=== PATIENT | female | born 1985 | race Caucasian/White ===

== ENCOUNTER 2016-11-02 09:21 | Day surgery (SDC) | payer BC, OTHER ==
[2016-11-02] MEDS ORDERED: EPINEPHrine 30 MG/30 ML MDV ONE (10:15)
[2016-11-02] MEDS ORDERED: BUPIVACAINE/EPI 0.25% 30 ML SDV ONE (10:15)
[2016-11-02] MEDS ORDERED: ACETAMINOPHEN 500 MG TAB ONE (10:21)
[2016-11-02] MEDS ORDERED: PREGABALIN 50 MG CAP ONE (10:22)
[2016-11-02] MEDS ORDERED: CEFAZOLIN 2 GM/DEXTROSE/100 ML BAG IV ONE (10:23)
[2016-11-02] MEDS ORDERED: fentaNYL 250 MCG/5 ML INJ ONE (10:50)
[2016-11-02] MEDS ORDERED: PROPOFOL 200 MG/20 ML VIAL ONE (10:50)
[2016-11-02] MEDS ORDERED: LIDOCAINE 2% 5 ML SDV ONE (10:51)
[2016-11-02] MEDS ORDERED: ROCURONIUM 50 MG/5 ML VIAL ONE ×2 (10:52→12:45)
[2016-11-02] MEDS ORDERED: SCOPOLAMINE HYDROBROMIDE 1.5 MG PATCH TD ONE (10:56)
[2016-11-02] MEDS ORDERED: MIDAZOLAM 2 MG/2 ML VIAL ONE ×2 (11:19→17:16)
[2016-11-02] MEDS ORDERED: DEXAMETHASONE 4 MG/ML VIAL ONE ×3 (12:20→12:22)
[2016-11-02] MEDS ORDERED: PHENYLEPHRINE HCL 100 MCG/ML SYR ONE (12:22)
[2016-11-02] MEDS ORDERED: epHEDrine SULFATE 10 MG/ML SYR ONE (12:23)
[2016-11-02] MEDS ORDERED: HYDROmorphONE/DILAUDID 2 MG/ML SYR ONE (15:32)
[2016-11-02] MEDS ORDERED: ONDANSETRON 4 MG/2 ML VIAL ONE ×2 (15:56→18:13)
[2016-11-02] MEDS ORDERED: LABETALOL HCL 5 MG/ML 20 ML MDV ONE (16:17)
[2016-11-02] MEDS ORDERED: fentaNYL 100 MCG/2 ML INJ ONE (16:26)
[2016-11-02] MEDS ORDERED: HYDROmorphONE/DILAUDID 1 MG/ML SYR ONE (16:43)
[2016-11-02] MEDS ORDERED: hydrALAZINE 20 MG/ML VIAL ONE (17:16)
[2016-11-02] MEDS ORDERED: hydrALAZINE 20 MG/ML VIAL IVP PRN (17:20)
[2016-11-02] MEDS ORDERED: MIDAZOLAM 2 MG/2 ML VIAL IVP PRN (17:20)
--- NOTE | 2016-11-02 17:49 | DX ---
Intraoperative fluoroscopy History: Left hip arthroscopy. Comparison: None available. Findings: 3 intraoperative spot films show needles and surgical instruments overlying the left hip. Fluoro time: 24.1 seconds. Dose: 9.6 mGy. Impression: Intraoperative fluoroscopy as above.
[2016-11-02] MEDS ORDERED: OXYCODONE/APAP 5/325 TAB ONE (18:13)
[2016-11-02] MEDS ORDERED: ONDANSETRON 4 MG/2 ML VIAL IVP PRN (18:15)
[2016-11-02 18:45] VITALS: BP 149/82; PULSE 74; RESP 16; TEMP 97.9; O2SAT 94
== END 2016-11-02 19:50 | disposition home or self-care (01) ==
LOC: FSGY 09:21
PROVIDERS: ATTEND Orthopaedic Surgery Sports Medicine
PROC: 0SQB4ZZ Repair Left Hip Joint, Percutaneous Endoscopic Approach (ICD-10-PCS; principal; 2016-11-02 11:00)
DX: M25.852 Other specified joint disorders, left hip (principal); Q65.89 Other specified congenital deformities of hip
CPT/HCPCS: 29914; 76001; C1769; C1713; J0360; J0690; J1100; J1170; J2250; J2370; J2405; J2704; J3010; J3490

== ENCOUNTER 2016-11-08 05:50 | Inpatient (IN) | payer BC, OTHER ==
[~2016-11-08 05:50] MED LIST: ACETAMINOPHEN 500 MG TAB PO ONE; PREGABALIN 50 MG CAP PO ONE; ceFAZolin 2 GM/DEXTROSE 100 ML IV ONE
[2016-11-08] MEDS ORDERED: TRANEXAMIC ACID 1,000 MG in NS 100 ML IV ONE ×2 (06:00→09:00)
[2016-11-08] MEDS ORDERED: ACETAMINOPHEN 500 MG TAB PO ONE (06:00)
[2016-11-08] MEDS ORDERED: ceFAZolin 2 GM/DEXTROSE 100 ML IV ONE (06:00)
[2016-11-08] MEDS ORDERED: PREGABALIN 50 MG CAP PO ONE (06:00)
[2016-11-08] MEDS ORDERED: SCOPOLAMINE HYDROBROMIDE 1.5 MG PATCH TD ONE (06:46)
[2016-11-08] MEDS ORDERED: SKIN ADHESIVE (DERMABOND) 1 EACH TP ONE (07:11)
[2016-11-08] MEDS ORDERED: CITRATE DEXTROSE SOLN 500 ML BAG ONE (07:11)
[2016-11-08] MEDS ORDERED: MIDAZOLAM 2 MG/2 ML VIAL ONE (07:11)
[2016-11-08] MEDS ORDERED: DEXAMETHASONE 4 MG/ML VIAL ONE ×2 (07:18→07:21)
[2016-11-08] MEDS ORDERED: LIDOCAINE 2% 100 MG/5 ML SYR IVP ONE (07:18)
[2016-11-08] MEDS ORDERED: ONDANSETRON 4 MG/2 ML VIAL ONE (07:18)
[2016-11-08] MEDS ORDERED: ROCURONIUM 50 MG/5 ML VIAL ONE (07:18)
[2016-11-08] MEDS ORDERED: PROPOFOL 200 MG/20 ML VIAL ONE (07:18)
[2016-11-08] MEDS ORDERED: fentaNYL 100 MCG/2 ML INJ ONE ×2 (07:18→13:02)
[2016-11-08] MEDS ORDERED: SUGAMMADEX SODIUM 200 MG/2 ML VIAL IVP ONE (07:18)
[2016-11-08] MEDS ORDERED: HYDROmorphONE/DILAUDID 2 MG/ML SYR ONE (07:18)
[2016-11-08] MEDS ORDERED: PHENYLEPHRINE HCL 100 MCG/ML SYR ONE (08:10)
[2016-11-08] MEDS ORDERED: NALOXONE HCL 0.4 MG/ML INJ IVP PRN (08:56)
[2016-11-08] MEDS ORDERED: NARCOTIC DRIP BAG-TOTAL ALL TYPES EP PRN (08:56)
[2016-11-08] MEDS ORDERED: LIDOCAINE 2% 5 ML SDV ONE ×3 (11:43→11:55)
[2016-11-08] MEDS ORDERED: LACTULOSE 20 GM/30 ML UDCUP PO PRN (12:52)
[2016-11-08] MEDS ORDERED: ACETAMINOPHEN 325 MG TAB PO PRN (12:52)
[2016-11-08] MEDS ORDERED: MAGNESIUM HYDROXIDE 30 ML UDCUP PO PRN (12:52)
[2016-11-08] MEDS ORDERED: BISACODYL 10 MG SUPP PR PRN (12:52)
[2016-11-08] MEDS ORDERED: ONDANSETRON 4 MG/2 ML VIAL IVP PRN (12:52)
[2016-11-08] MEDS ORDERED: ONDANSETRON DISINTEGRATING 4 MG TAB PO PRN (12:52)
[2016-11-08] MEDS ORDERED: PROMETHAZINE HCL 25 MG/ML INJ ONE (13:08)
--- NOTE | 2016-11-08 13:23 | SUROPNOTE ---
STEPHEN Operative Report - Surgery Surgery was performed at [facility] 11/08/16 Diagnosis: Left 1. Hip Acetabular Dysplasia Operation: Left Jaqui Acetabular Osteotomy (AMINA) Surgeon: Will Etienne MD Vp Clinical: Zeke KENDALL Anesthetic: General + epidural Procedure: General anesthetic. Antibiotics given. Cell saver in use. Fluoroscopy. Phase 1: Position lateral, diagonal skin incision between ischial tuberosity and greater trochanter as for posterior hip approach. Blunt split of glut max fibers. Identification of fat pad overlying sciatic nerve. Exposure of sciatic nerve under fat pad, gently retracting it away-medially to ischial tuberosity. Exposure of subcotoloid fossa proximal to short rotators. Using osteotomes and under fluoroscopy, osteotomy of subcotoloid fossa to sciatic notch proximal to ischial spine. Closure of lateral cut. Patient is turned supine. Phase 2: Skin incision just distal to ASIS. Using diathermy the iliac spine was exposed and inguinal ligament + Sartorious were retracted medially, taking the LFCN with them, protecting it. Inner ilium was dissected from iliacus muscle bluntly , with a cob and swab. Dissection continued towards lateral superior ramus pubis. Using fluoroscopy an osteotomy of lateral superior ramus, just medial to tear drop, was performed with curved fish mouth osteotome. Phase 3: Osteotomy lines of the ilium were marked with diathermy as pre planned according to XR/CT and expected correction of acatabulum. 2 Shanz screws were drilled into central acetabular fragment, corresponding with planned correction angles, in order to mobilize central acetabular fragment after osteotomy is complete. Iliac osteotomy was performed with reciprocating saw and the main acetabular fragment was moved to realign weight bearing position. After confirmation of correction using fluoroscopy in AP and false profile planes, the fragment was fixed with 3 - 5.5mm full threaded screws Inguinal ligament and Sartorious were attached back to ASIS through drill holes. Incision was closed according to soft tissue layers. Skin was closed with subdermal Monocryl. Final fluoro shots were obtained to confirm position/correction. After surgery Nivia moved both lower limbs and had no NV motor compromise. Evaluation under anesthesia: IR at 90 degrees hip flexion prior to AMINA was 25 degrees and after AMINA was 15 degrees. Bleedin cc into cell-saver, 135 of blood products were returned to patient. Post op instructions: 1. Non weight bearing crutches for 6 weeks 2. Epidural analgesia for 24-48 hours 3. Continuous SCD 4. Aspirin 81 mg X1 day once Epidural is discontinued 5. Avoid hip flexion past 90 and hip External rotation. 6. PT according to my recommendations at follow up visit Kind regards, Dr. Will Etienne .
[2016-11-08] MEDS: DC NARCS MISC SCH (14:17)
[2016-11-08] MEDS: REGARDING ANTICOAG MISC SCH (14:17)
--- NOTE | 2016-11-08 14:47 | DX ---
Fluoroscopy provided for left hip surgery 1035 hours Indication: Left periacetabular osteotomy Fluoroscopy time: 58.4 seconds. Dose: 26.94 mGy Technique: Four procedural spot films were obtained . Findings: Imaging reveals periacetabular osteotomy and transfixation of the acetabular component with 3 cannulated screws. Impression: Intraoperative localization provided for left periacetabular osteotomy.
[2016-11-08] MEDS: SENNOSIDES/DOCUSATE SODIUM TAB PO SCH (21:02)
[2016-11-08] MEDS: HYDROmorph 10MCG/ML&BUP 0.1% in 100ML NS EP SCH (22:31)
[2016-11-09 05:29] LABS: HEMATOCRIT 34.9 % (38.0-47.0); HEMOGLOBIN 11.6 g/dL (12.6-16.3); MEAN CELL HEMOGLOBIN CONCENTR. 33.2 g/dL (32.4-36.7); MEAN CELL VOLUME 90.2 fL (81.5-99.8); RED BLOOD CELL COUNT 3.87 10^6/uL (4.18-5.33); RED CELL DISTRIBUTION WIDTH 12.8 % (11.5-15.2)
[2016-11-09 05:56] LABS: ANION GAP 6 mEq/L (8-16); CARBON DIOXIDE 25 mEq/l (22-31); CHLORIDE 107 mEq/L (97-110); CREATININE 0.7 mg/dL (0.6-1.0); GLOMERULAR FILTRATION RATE > 60; GLUCOSE 107 mg/dL (70-100); POTASSIUM 4.6 mEq/L (3.5-5.2); SODIUM 138 mEq/L (134-144)
[2016-11-09] MEDS: SENNOSIDES/DOCUSATE SODIUM TAB PO SCH ×2 (08:01→20:17)
[2016-11-09] MEDS: POLYETHYLENE GLYCOL 3350 17 GM PKT PO PRN (08:13)
[2016-11-09] MEDS: HYDROmorph 10MCG/ML&BUP 0.1% in 100ML NS EP SCH (11:42)
[2016-11-09] MEDS: REGARDING ANTICOAG MISC SCH (12:04)
[2016-11-09] MEDS: DC NARCS MISC SCH (12:04)
--- NOTE | 2016-11-09 13:13 | SOAPPROG ---
SOAP Progress Note Assessment/Plan: Assessment:31 yo F POD 1 s/p AMINA pain well controlled with PCEA. Plan:Continue PCEA at 7cc/hr, 5cc bolus as needed for pain every 15 min 11/09/16 13:10 Subjective: Pain well controlled. Numbness more prominent on R side. No concerns. Objective: Awake, alert. Appears comfortable. Sensation and motor decreased on R>L LE. Epidural cath site clean, dry, intact. Vital Signs Temp Pulse Resp BP Pulse Ox 37.1 C 80 16 116/67 97 11/09/16 12:40 11/09/16 12:40 11/09/16 12:40 11/09/16 12:40 11/09/16 12:40 Laboratory Results 11/09/16 04:25 11/09/16 04:30 11/08/16 11/09/16 11/10/16 05:59 05:59 05:59 Intake Total 2370 200 Output Total 2300 Balance 70 200 - Time Spent With Patient Time Spent With Patient: 10 min ICD10 Worksheet Patient Problems: Problems Problem Status Diagnosed Hip dysplasia, congenital Acute - ICD10 Problem Qualifiers (1) Hip dysplasia, congenital
--- NOTE | 2016-11-09 21:58 | SOAPPROG ---
DEB Progress Note Assessment/Plan: Assessment: Plan: 11/09/16 21:57 Saw Nivia bob, she is doing well, pain is managed well, with some mre numbness on contra lateral side which had mostly resolved. NV intact. She got up today. No headaches or weakness for now. She feels good with no complaints. Hb- 11.6 Dr Etienne Objective: Vital Signs Temp Pulse Resp BP Pulse Ox 37.3 C 90 18 110/66 99 11/09/16 20:00 11/09/16 20:00 11/09/16 20:00 11/09/16 20:00 11/09/16 20:00 Laboratory Results 11/09/16 04:25 11/09/16 04:30 11/08/16 11/09/16 11/10/16 05:59 05:59 05:59 Intake Total 2370 3200 Output Total 2300 1100 Balance 70 2100 ICD10 Worksheet Patient Problems: Problems Problem Status Diagnosed Hip dysplasia, congenital Acute
[2016-11-10] MEDS: HYDROmorph 10MCG/ML&BUP 0.1% in 100ML NS EP SCH ×2 (00:21→15:06)
[2016-11-10] MEDS: SENNOSIDES/DOCUSATE SODIUM TAB PO SCH ×2 (07:52→20:18)
[2016-11-10] MEDS: POLYETHYLENE GLYCOL 3350 17 GM PKT PO PRN (07:52)
[2016-11-10] MEDS: REGARDING ANTICOAG MISC SCH (10:26)
[2016-11-10] MEDS: DC NARCS MISC SCH (10:26)
--- NOTE | 2016-11-10 10:26 | SOAPPROG ---
SOAP Progress Note Assessment/Plan: Assessment: 2nd day post op LEFT periacetabular osteotomy Plan: Wean down PCEA per anesthesia Transition to Oxycodone 15mg/Dilaudid IVP Up with PT/OT Pelvis Xray tomorrow Likely home Tuesday11/10/16 10:22 Subjective: Nivia is doing well this morning. She is having more numbness on her non- operative leg but reports being well pain controlled. She denies any nausea, cp or sob. Objective: Vital Signs Temp Pulse Resp BP Pulse Ox 37.1 C 95 14 134/79 H 95 11/10/16 08:00 11/10/16 08:00 11/10/16 08:00 11/10/16 08:00 11/10/16 08:00 Laboratory Results 11/09/16 04:25 11/09/16 04:30 11/09/16 11/10/16 11/11/16 05:59 05:59 05:59 Intake Total 2370 3500 300 Output Total 2300 3100 Balance 70 400 300 Well appearing in NAD Left hip: dressings clean dry intact no LFCN distribution numbness NVI distally Full ROM of left foot and ankle - Pending Discharge Pending Discharge Within 48 Hours: Yes Pending Discharge Date: 11/12/16 Pending Discharge Time: 11:00 ICD10 Worksheet Patient Problems: Problems Problem Status Diagnosed Hip dysplasia, congenital Acute
[2016-11-10] MEDS: NAPROXEN SODIUM 220 MG TAB PO SCH ×2 (10:30→20:18)
[2016-11-10] MEDS ORDERED: HYDROmorphONE/DILAUDID 1 MG/ML SYR IVP PRN (11:38)
[2016-11-10] MEDS: oxyCODONE IR 15 MG TAB PO PRN ×2 (12:01→15:47)
[2016-11-10] MEDS: ASPIRIN EC 81 MG TAB PO SCH (12:05)
--- NOTE | 2016-11-10 15:32 | SOAPPROG ---
SOAP Progress Note Assessment/Plan: Assessment:31 yo F POD 2 s/p AMINA pain well controlled with PCEA. Plan:Currently PCEA at 7cc/hr, 5cc bolus as needed for pain every 15 min. Decrease basal rate to 3 cc/hr. Wean epidural with goal of transitioning to IV/ PO analgesics today. Opioid analgesics per ortho. 11/09/16 13:10 11/10/16 15:28 Subjective: Pain well controlled. R > L numbness from epidural. Ready to transition off epidural. Objective: Awake, alert. Epidural site clean dry intact. Sensation and motor decreased R> L. Vital Signs Temp Pulse Resp BP Pulse Ox 37.2 C 80 16 123/72 H 95 11/10/16 15:25 11/10/16 15:25 11/10/16 15:25 11/10/16 15:25 11/10/16 15:25 Laboratory Results 11/09/16 04:25 11/09/16 04:30 11/09/16 11/10/16 11/11/16 05:59 05:59 05:59 Intake Total 2370 3500 900 Output Total 2300 3100 1800 Balance 70 400 -900 - Time Spent With Patient Time Spent With Patient: 15min ICD10 Worksheet Patient Problems: Problems Problem Status Diagnosed Hip dysplasia, congenital Acute - ICD10 Problem Qualifiers (1) Hip dysplasia, congenital
--- NOTE | 2016-11-10 19:03 | DX ---
Portable AP Upright Chest History: Chest pain in a 31-year-old female; no previous studies are available for comparison. Findings: The heart and mediastinum are normal. Pulmonary vascularity is normal. The lungs are clear. There is no pleural fluid. A pneumothorax is not identified. Scoliotic curvature of the spine is not ed. Impression: Chest negative for acute abnormality.
--- NOTE | 2016-11-10 19:14 | CPEKG ---
Heart Rate: 76 RR Interval: 789 P-R Interval: 164 QRSD Interval: 86 QT Interval: 360 QTC Interval: 405 P [place]: 38 QRS [place]: 75 T Wave [place]: 16 EKG Severity - NORMAL ECG - EKG Impression: SINUS RHYTHM Electronically Signed By: Susan De La Cruz 11-Nov-2016 08:44:18
[2016-11-10 20:22] LABS: CK-MB INTERPRETATION NEGATIVE (NEGATIVE); CREATINE KINASE-MB FRACTION 0.78 ng/mL (0-3.19); TROPONIN I < 0.012 ng/mL (0-0.034)
[2016-11-11] MEDS: oxyCODONE IR 15 MG TAB PO PRN ×3 (01:10→16:18)
[2016-11-11] MEDS: DC NARCS MISC SCH (08:59)
[2016-11-11] MEDS: SENNOSIDES/DOCUSATE SODIUM TAB PO SCH ×2 (08:59→20:19)
[2016-11-11] MEDS: NAPROXEN SODIUM 220 MG TAB PO SCH ×2 (08:59→20:19)
[2016-11-11] MEDS: REGARDING ANTICOAG MISC SCH (08:59)
[2016-11-11] MEDS: ASPIRIN EC 81 MG TAB PO SCH (08:59)
[2016-11-11] MEDS: POLYETHYLENE GLYCOL 3350 17 GM PKT PO PRN (11:17)
--- NOTE | 2016-11-11 15:25 | DX ---
AP Pelvis History: Postop left acetabular rotational osteotomy, postop day 3 Comparison: None Findings: 3 long compression screws affix the left acetabulum in anatomic alignment. The osteotomy of the inferior medial left acetabulum remains visible. The SI joints and pubic symphysis appear normal . The right acetabulum remains congenitally short.. Impression: Anatomic alignment.
--- NOTE | 2016-11-11 21:52 | SOAPPROG ---
SOAP Progress Note Assessment/Plan: Assessment: Plan: 11/09/16 21:57 Saw Nivia bob, she is doing well, pain is managed well, with some mre numbness on contra lateral side which had mostly resolved. NV intact. She got up today. No headaches or weakness for now. She feels good with no complaints. Hb- 11.6 Dr Etienne 11/11/16 21:52 POD 3, saw patient lisbeth. doing well. Epi and folly out. managed well pain lópez. NV intact. Dr Etienne Objective: Vital Signs Temp Pulse Resp BP Pulse Ox 37.1 C 101 H 14 118/78 97 11/11/16 19:31 11/11/16 19:31 11/11/16 19:31 11/11/16 19:31 11/11/16 19:31 Laboratory Results 11/09/16 04:25 11/09/16 04:30 11/10/16 11/11/16 11/12/16 05:59 05:59 05:59 Intake Total 3500 2150 500 Output Total 3100 4950 800 Balance 400 -2800 -300 ICD10 Worksheet Patient Problems: Problems Problem Status Diagnosed Hip dysplasia, congenital Acute
[2016-11-11 23:22] VITALS: O2SAT 92
--- NOTE | 2016-11-11 23:22 | SOAPPROG ---
SOAP Progress Note Assessment/Plan: Assessment:31 yo F POD 3 s/p AMINA pain controlled off epidural infusion x24 hr. Plan: Opioid analgesics per ortho. Discontinue epidural cath. 11/11/16 23:19 Subjective: pain controlled on iv po analgesics. LE numbness resolved. Objective: epidural site clean dry intact. sensory and motor intact in LE. epidural cath intact upon removal. Vital Signs Temp Pulse Resp BP Pulse Ox 37.1 C 101 H 14 118/78 97 11/11/16 19:31 11/11/16 19:31 11/11/16 19:31 11/11/16 19:31 11/11/16 19:31 Laboratory Results 11/09/16 04:25 11/09/16 04:30 11/10/16 11/11/16 11/12/16 05:59 05:59 05:59 Intake Total 3500 2150 500 Output Total 3100 4950 800 Balance 400 -2800 -300 - Time Spent With Patient Time Spent With Patient: 5 min ICD10 Worksheet Patient Problems: Problems Problem Status Diagnosed Hip dysplasia, congenital Acute - ICD10 Problem Qualifiers (1) Hip dysplasia, congenital
[2016-11-12] MEDS: oxyCODONE IR 15 MG TAB PO PRN ×3 (00:09→11:36)
[2016-11-12 07:14] VITALS: BP 124/73; PULSE 85; RESP 15; TEMP 97.8
[2016-11-12] MEDS: SENNOSIDES/DOCUSATE SODIUM TAB PO SCH (09:11)
[2016-11-12] MEDS: NAPROXEN SODIUM 220 MG TAB PO SCH (09:11)
[2016-11-12] MEDS: ASPIRIN EC 81 MG TAB PO SCH (09:12)
--- NOTE | 2016-11-12 12:14 | SOAPPROG ---
DEB Progress Note Assessment/Plan: Assessment: 4th day post op LEFT periacetabular osteotomy Plan: Oxycodone 15mg Up with PT/OT DC home 11/10/16 10:22 11/12/16 12:11 Subjective: Nivia is doing well this am. She's been well pain managed with oral analgesics, she denies cp, sob or nausea. She has been up with PT and is ready to go home. Objective: Vital Signs Temp Pulse Resp BP Pulse Ox 36.6 C 85 15 124/73 H 92 11/12/16 07:12 11/12/16 07:12 11/12/16 07:12 11/12/16 07:12 11/12/16 07:12 Laboratory Results 11/09/16 04:25 11/09/16 04:30 11/11/16 11/12/16 11/13/16 05:59 05:59 05:59 Intake Total 2150 500 500 Output Total 4950 1000 400 Balance -2800 -500 100 Well appearing in NAD Left hip: dressings clean dry intact NVI distally full ROM of foot and ankle - Pending Discharge Pending Discharge Within 24 Hours: Yes Pending Discharge Date: 11/13/16 Pending Discharge Time: 11:00 ICD10 Worksheet Patient Problems: Problems Problem Status Diagnosed Hip dysplasia, congenital Acute
--- NOTE | 2016-11-26 12:36 | GDS ---
[f rep st] DISCHARGE SUMMARY The patient underwent a left periacetabular osteotomy for left hip acetabular dysplasia on October 122016. Intraoperatively, epidural and a Segura catheter were placed. Epidural was used for pain m anagement postoperatively and gave her 2 days of good pain control. Her PCEA was weaned down on her 2nd postoperative day. The PCEA gave her more numbness on the contralateral side; however, it did give her good pain relief. A pelvis x-ray was done on her 3rd postoperative day which showed good b carolyn and screw fixation, and she was discharged home in good condition on her 4th postoperative day. She was sent home with a script for oxycodone 15 mg, #90. She will be wearing SCDs 24 hours a day, 7 days a week, for 2 weeks postoperatively and thereafter only at night for another week and will al so be using 81 mg of aspirin for 1 month, both for DVT prophylaxis. She will follow up with Dr. Sherly Lee in 2 weeks' time for postoperative followup. /[id number]/MODL
== END 2016-11-12 14:50 | disposition home or self-care (01) | DRG 482 ==
LOC: F3N 05:50
PROVIDERS: ADMIT Orthopaedic Surgery Sports Medicine; ATTEND Orthopaedic Surgery Sports Medicine
PROC: 0Q830ZZ Division of Left Pelvic Bone, Open Approach (ICD-10-PCS; principal; 2016-11-08 07:15)
PROC: 0SSB04Z Reposition Left Hip Joint with Internal Fixation Device, Open Approach (ICD-10-PCS; principal; 2016-11-08 07:15)
DX: Q65.89 Other specified congenital deformities of hip (principal)
CPT/HCPCS: 97110-GP; 97116-GP; 97161-GP; 97165-GO; 97530-GO; 97530-GP; 97535-GO; C1713; C1769; J0690; J1100; J1170; J2001; J2250; J2370; J2405; J2550; J2704; J3010; J7060

== ENCOUNTER 2017-06-17 05:57 | Day surgery (SDC) | payer BC ==
--- NOTE | 2017-06-16 08:37 | PDGENHP ---
History and Physical - Chief Complaint Left Hip Pain - History of Present Illness 1. Left Hip Dyplasia with cam type SAMMY and labral tear 2. ~~Borderline Right Hip Dysplasia with cam type SAMMY and labral tear HISTORY OF PRESENT ILLNESS: Huberis a 31 y.o.~~female~who I have had the pleasure to consult on today.~I have enjoyed meeting her. She~lives in [place], [place]. ~Huberworks as a account auditor. ~She~is ; she~has no children. ~Huberenjoys working out gym and hiking. Nivia's left~hip pain started 10 years ago, with no~recalled trauma or injury , and with some~previous complaints. ~Huberhas~a known history of bilateral hip dysplasia ~and she was born with hip dysplasia. She was treated with a hip cast during her infancy. Presentation today is of~anterior, lateral left~hip pain. Pain is constant and it is dull aching to sharp. The hip does~wake her~at night and does~click and catch on her. Sitting can be uncomfortable for her. Huberdoes not~report suffering from lower back pain episodes. Huberhas not~participated in physical therapy and has not~tried other conservative measures including hip injections , dry needling, chiropractic treatments and massage therapy. She~has not~received sufficient symptomatic improvement. Huberhas not~utilized medication for pain management, including NSAID and OTC acetaminophen. ~Huberdenies issues with the right hip except for occasional soreness. ~ Huberunderstands that she~has a hip and pelvis problem which should be researched and wishes to get a better understanding of her~hip status, followed by an establishment of a treatment strategy, hoping sheSherinewould be able to get back to her~well being active life. History: Past medical history: ~ None which is relevant Relevant familial history: Older sister was treated for hip dysplasia. Past surgical history: Right ankle surgery in 1997 and the outcome was good. [place] tooth removal. Huberdenies problematic issues with general anesthesia in the past. I have reviewed, verified and agree with the past medical, surgical, family and social history. Current Medications:~has a current medication list which includes the following prescription(s): ibuprofen and multivitamin. ALLERGIES:~has No Known Allergies. Objective: Physical Examination: Huberis 5 feet 5~inches tall and weighs~208~Lbs. Huberis AAO x3; she~is well-nourished, in NAD. Skin is warm and dry. ~Breathing is non-labored. ~CV with RRR by pulse. Abdomen is soft, NTND. Currently, she~walks with a normal~gait. Trendelenburg sign is negative and proprioception~is normal, both~sides. She~presents~with moderate~signs of joint laxity.~Beightons Score: 4 Lower spine examination is negative~for sciatic or femoral nerve irritation with negative~SLR &~femoral stretch tests. Range of motion of the spine is normal~for flexion, extension, and rotations, with no~associated pain. Strength, Sensation and pulses are normal - bilaterally Ankles and knees exams are normal~and no~mal-alignment is evident. She~has~no leg length discrepancy. Thigh circumference is symmetric with no evidence for muscle atrophy on both~ sides. Hip ROM (degrees): FL ER At 90~hip FL IR At 90~hip FL AB AD EX IR Neutral hip ER Neutral hip R 105 45 30 40 5 0 50 35 L 100 45 20 40 5 0 50 35 Specific hip and pelvis tests: Quadrant THO Roll Add. Longus R +++ +++ Negative Negative L +++ L>R +++ Negative + Glut. Med ITB Pos. Imp R Negative 5/5 strength Negative 5/5 strength Negative L Negative 5/5 strength Negative 5/5 strength Negative Squeeze test measured normal Bony Symphysis pubis is pain free to touch while concentric activity of the rectus abdominis, does not~produce pain at its insertion. Ilio Psos specific tests are negative for pain during cycling for both hips~and remarkable for no snap. No capsule tenderness bilaterally. Greater trochanteric burse is pain free on both hips. Piriformis tests: FAIR is negative, with no local signs of neuritis related to sciatic nerve. SIJs examination is normal with normal~THO in relation and local tenderness. Hamstrings tests are negative~functional contraction and negative~tendinopathy on both sides. On a daily basis, the following percentages reflect Nivia's overall total pain : Deep hip: 100% Imaging: Radiology studies which I~have personally reviewed, analyzed and measured are below: XR: AP of the hip and pelvis: Performed in a good~technique Coccyx to pubic symphysis distance 2 cm. 0 deg. Upright. caudal/cephal [place]~Line is interrupted on the left. Minimal Pathological signs are seen in the Symphysis Pubis. No Pathological signs are seen at the Ischial~tuberosity. ~ Specific measurements show: NSA~ LCE Sourcil~Angle Sharp's angle Lat. Cam Lat. Pincer C.Over~sign Head~Coverage % ATDmm R 125 24 13 40 ++ - - 83 N L 141 15 24 46 ++ - - 66 N Pos. wall sign ISS NAD ~~Dysplasia Comments R Negative Negative 14.9 mm + L Negative Negative 24.9 mm +++ Sclerosis Sup. Lat. OA Cysts Joint Space-WBZ Joint Space-Medial R +++ +++ Negative 2.5 mm 3.3 mm L ++ ++ Negative 4.3 mm 4.8 mm X Table lateral: Anterior cam lesion is seen Alpha Angle: ~ Right 73 dergrees Left 75 degrees MRI done on 06/19/2016 shows: Hypertrophic labrum with tear and cartilage damage. Impression and plan: ~Nivia~is a 31 y.o.~active female~suffering from symptomatic bilateral hip pain due to ~Left Hip Dyplasia and Borderline Right Hip Dysplasia with B/L cam type SAMMY and labral tear and early osteoarthritis,Left side symptomatic causing significant disability to her~and altering~her~sport and life activities. Physical examination, imaging, and her~story correspond with the diagnosis mentioned above.~ I explained that hip dysplasia is a condition wherein the hip joint has excessive play~and instability due to a variety of factors, including the depth and adequacy of the socket, the orientation of the femur bone, and ligament laxity around the hip joint. Dysplasia ranges in severity from borderline to talib, with treatment options being specific to the specific nature of the problem. Left untreated, the instability in the hip joint can cause progressive tearing of the labrum and deterioration of the surface cartilage, ultimately resulting in progressive osteoarthritis of the hip.\ I explained that femoroacetabular impingement (SAMMY) arises due to a bony or soft tissue conflict between the femur (ball) and acetabulum (socket) caused by an abnormality in the shape of the hip joint. Over time, repetitive impingement can result in damage to the labrum and adjacent surface cartilage within the socket, ultimately giving rise to progressive osteoarthritis of the hip. I explained that although a labral tear can be a source of pain, it is rarely the root of the problem and typically occurs secondary to an underlying abnormality in the shape and mechanics of the hip joint. ~~ I reviewed conservative treatment options for dysplasia~and SAMMY with labral tear ~including activity modification to avoid positions of instability, physical therapy, non-steroidal anti-inflammatory medications, and various injections ( corticosteroid and PRP) aimed at reducing inflammation in the hip joint or/and preventing dynamic instability and impingement. Although these measures may help to buy time, they are not a definitive solution to the problem given the underlying abnormality in the shape of the hip joint. Patients who have failed conservative management and continue to experience symptoms are candidates for definitive surgical treatment, which may consist of hip arthroscopy alone or in combination with more invasive bony realignment procedures of the hip socket and/or femur called periacetabular osteotomy (AMINA) or derotational femoral osteotomy (DFO). Hip arthroscopy typically includes treating the labrum with either debridement, repair, or reconstruction of the torn labrum; as well as addressing the underlying abnormalities by restoring the normal shape of the hip joint. ~If the cartilage is damaged a Microfracture surgical procedure may also be necessary to help stimulate the growth of fibrocartilage. If a patient requires a labral reconstruction or a Microfracture, the initial rehabilitation from the surgery may take longer, but the intermediate results are typically favorable. I also~explained that a hip preservation procedure (arthroscopy followed by AMINA ) might serve as a bridging procedure to try and buy as much time as possible, keeping her~ewiiaapaayp joint before joint replacement would be unavoidable.Additionally, these surgeries do not eliminate the possibility for future THR. If the hip preservation techniques fail to yield the expected results, THR can be done promptly. In order to obtain more detailed information regarding the alignment, orientation, and shape of the bony hip and pelvis I will order a CT scan to be performed. The results of the CT scan, including femoral torsion and acetabular version measured values and 3D images, will aid me in deciding on the best treatment strategy and surgical pre-planning.In order to evaluate the integrity of the surface cartilage within the hip joint, I will order a delayed gadolinium enhanced MRI of cartilage (dGEMRIC). This study will determine whetherNgocis a good candidate for hip preservation surgery. Nivia is happy with this plan. I have also supplied her~with handouts, outlining the expected surgical treatment and rehab involved. I wish~Huberall the best, ~~ Alvaro Aragon MD History Information - Allergies/Home Medication List Allergies/Adverse Reactions: No Known Allergies Allergy (Verified 05/31/17 12:22) Home Medications: Ibuprofen [Motrin (*)] 400 mg PO DAILY 10/18/16 [Last Taken 10/26/16] Vicks Dayquil Cough 05/31/17 [Last Taken Unknown] I have personally reviewed and updated: medical history - Social History Smoking Status: Never smoked Review of Systems Review of Systems: Physical Exam Physical Exam:
[2017-06-17] MEDS ORDERED: PREGABALIN 150 MG CAP PO ONE (06:08)
[2017-06-17] MEDS ORDERED: ceFAZolin 2 GM/DEXTROSE 100 ML IV ONE (06:08)
[2017-06-17] MEDS ORDERED: ACETAMINOPHEN 500 MG TAB PO ONE (06:08)
[2017-06-17] MEDS ORDERED: LIDOCAINE 1% 2 ML INJ ONE (06:20)
[2017-06-17] MEDS ORDERED: PROPOFOL 200 MG/20 ML VIAL ONE (06:45)
[2017-06-17] MEDS ORDERED: fentaNYL 100 MCG/2 ML INJ ONE (06:45)
[2017-06-17] MEDS ORDERED: ROCURONIUM 50 MG/5 ML VIAL ONE (06:45)
[2017-06-17] MEDS ORDERED: LIDOCAINE 2% 5 ML SDV ONE (06:45)
[2017-06-17] MEDS ORDERED: ONDANSETRON 4 MG/2 ML VIAL ONE ×2 (06:49→08:57)
[2017-06-17] MEDS ORDERED: SUGAMMADEX SODIUM 200 MG/2 ML VIAL IVP ONE (06:49)
[2017-06-17] MEDS ORDERED: DEXAMETHASONE 4 MG/ML VIAL ONE (06:49)
[2017-06-17] MEDS ORDERED: LIDOCAINE 1% 300 MG/30 ML SDV ONE (06:50)
[2017-06-17] MEDS ORDERED: MIDAZOLAM 2 MG/2 ML VIAL ONE (07:04)
[2017-06-17] MEDS ORDERED: SCOPOLAMINE HYDROBROMIDE 1 MG/3 DAYS PATCH TD ONE (07:04)
--- NOTE | 2017-06-17 07:09 | PDANEPAE ---
ANE History of Present Illness 32 year old female s/p AMINA presents for removal of hardware from left hip. ANE Past Medical History - Cardiovascular History Hx Hypertension: No Hx Arrhythmias: Yes Hx Chest Pain: No Hx Coronary Artery / Peripheral Vascular Disease: No Hx CHF / Valvular Disease: No Hx Palpitations: No Cardiovascular History Comment: BENIGN SKIPS A BEAT CAN FEEL IT. WITH STRESS OR INCREASED CAFFEINE INTAKE - Pulmonary History Hx COPD: No Hx Asthma/Reactive Airway Disease: No Hx Recent Upper Respiratory Infection: No Hx Oxygen in Use at Home: No Hx Sleep Apnea: No Sleep Apnea Screening Result - Last Documented: Negative - Neurologic History Hx Cerebrovascular Accident: No Hx Seizures: No Hx Dementia: No Neurologic History Comment: tension H/A every 8 weeks. minor H/A once/ 2 wks. - Endocrine History Hx Diabetes: No Hypothyroid: No Hyperthyroid: No Obesity: mild - Renal History Hx Renal Disorders: No - Liver History Hx Hepatic Disorders: No - Neurological & Psychiatric Hx Hx Neurological and Psychiatric Disorders: No - Cancer History Hx Cancer: No - Congenital Disorder History Hx Congenital Disorders: No - GI History GERD: mild Hx Gastrointestinal Disorders: No Gastrointestinal History Comment: occ GERD w/spicy,dairy - Other Health History Other Health History: retained 3 screws L hip;. R HIP DYSPLASIA - Chronic Pain History Chronic Pain: No - Surgical History Prior Surgeries: AMINA 11-09-16. LT HIP SCOPE/FEMOROPLASTY 11/02/2016. RT ANKLE ORIF ANE Review of Systems Review of systems is: negative Review of Systems: - Exercise capacity Exercise capacity: >=4 METS METS (RN): 4 METS ANE Patient History - Allergies Allergies/Adverse Reactions: No Known Allergies Allergy (Verified 05/31/17 12:22) - Home Medications Home medications: home medication list seen and reviewed Home Medications: Ibuprofen [Motrin (*)] 400 mg PO DAILY 10/18/16 [Last Taken 10/26/16] Vicks Dayquil Cough 05/31/17 [Last Taken Unknown] - NPO status NPO Status: no food or drink >8 hours NPO Since - Liquids (Date): 06/16/17 NPO Since - Liquids (Time): 22:30 NPO Since - Solids (Date): 06/16/17 NPO Since - Solids (Time): 18:30 - Anes Hx Anes Hx: post operative nausea, slow to awaken from anesthesia - Smoking Hx Smoking Status: Never smoked Marijuana use: No - Alcohol Use Alcohol Use: Rarely - Family Anes Hx Family Anes Hx: neg - N/A ANE Labs/Vital Signs - Vital Signs Vital Signs: reviewed preoperatively; see RN documention for details Blood Pressure: 135/88 Heart Rate: 67 Respiratory Rate: 16 O2 Sat (%): 95 Height: 165.1 cm Weight: 95.254 kg ANE Physical Exam - Airway Neck exam: FROM Mallampati Score: Class 1 Mouth exam: normal dental/mouth exam - Pulmonary Pulmonary: no respiratory distress - Cardiovascular Cardiovascular: regular rate and rhythym - ASA Status ASA Status: II ANE Anesthesia Plan Anesthesia Plan: general endotracheal anesthesia Total IV Anesthesia: No
[2017-06-17] MEDS ORDERED: MIDAZOLAM 2 MG/2 ML VIAL IVP ONE (07:10)
[2017-06-17] MEDS ORDERED: SCOPOLAMINE HYDROBROMIDE 1 MG/3 DAYS PATCH TD SCH (07:15)
[2017-06-17] MEDS ORDERED: LR 500 ML IV PRN (07:51)
[2017-06-17] MEDS ORDERED: ONDANSETRON 4 MG/2 ML VIAL IVP PRN (07:51)
[2017-06-17] MEDS ORDERED: NALOXONE HCL 0.4 MG/ML INJ IVP PRN (07:51)
[2017-06-17] MEDS ORDERED: fentaNYL 100 MCG/2 ML INJ IVP PRN (07:51)
[2017-06-17] MEDS ORDERED: HYDROCODONE/APAP 5/325 TAB PO PRN (07:51)
[2017-06-17] MEDS ORDERED: HYDROmorphONE/DILAUDID 1 MG/ML INJ IVP PRN (07:51)
--- NOTE | 2017-06-17 08:34 | POSTANESTH ---
Post Anesthetic Evaluation Cardiovascular Status: Normal, Stable, Similar to Pre-Op Cond Respiratory Status: Normal, Stable, Similar to Pre-op Cond. Level of Consciousness/Mental Status: Can Participate in Eval, Alert and Oriented Pain Control: Adequate, Prn Tx Ordered Nausea/Vomiting Control: Adequate, Prn Tx Ordered Complications Possibly Related to Anesthesia: None Noted
[2017-06-17 08:40] VITALS: TEMP 97.7
[2017-06-17 11:10] VITALS: BP 126/89; PULSE 78; RESP 17; O2SAT 96
[2017-06-20] MEDS ORDERED: PATCH REMOVAL 1 EA PATCH TD SCH (07:10)
== END 2017-06-17 09:50 | disposition home or self-care (01) ==
LOC: FSGY 05:57
PROVIDERS: ATTEND Orthopaedic Surgery Sports Medicine
PROC: 0QP304Z Removal of Internal Fixation Device from Left Pelvic Bone, Open Approach (ICD-10-PCS; principal; 2017-06-17 07:15)
DX: Z47.2 Encounter for removal of internal fixation device (principal); M25.552 Pain in left hip
CPT/HCPCS: J0690; J1100; J2250; J2405; J2704; J3010